=== PATIENT | male | born 1985 | race Caucasian/White ===

== ENCOUNTER 2023-08-11 07:09 | Emergency (ER) | payer MEDICAID ==
[~2023-08-11] VITALS: Ht 182.9 cm; Wt 87.0 kg
[2023-08-11 07:26] VITALS: O2SAT 99
[2023-08-11] MEDS ORDERED: IBUPROFEN 600MG TABLET PO ONE (08:30)
[2023-08-11 10:38] VITALS: BP 103/85; PULSE 65; RESP 19; TEMP 98.2
== END 2023-08-11 10:39 | disposition home or self-care (01) ==
LOC: ER 07:45
DX: M25.572 Pain in left ankle and joints of left foot (principal); W17.89XA Other fall from one level to another, initial encounter; Y93.89 Activity, other specified; Y92.89 Other specified places as the place of occurrence of the external cause; Y99.8 Other external cause status
CPT/HCPCS: 73610; 73630; 29515; 99284; Z7610